=== PATIENT | female | born 1980 | race Caucasian/White ===

== ENCOUNTER → 2019-08-23 | Emergency (ER) | payer OTHER ==
[~2019-08-23] VITALS: Ht 154.9 cm; Wt 81.6 kg
[~2019-08-23] MED LIST: CLONAZEPAM1 GM; RESTORIL15 M1; ZESTRIL40 M1
== END | disposition left against medical advice (07) ==
LOC: ER 14:40
DX: K29.70 Gastritis, unspecified, without bleeding (principal)

== ENCOUNTER 2023-10-12 08:30 | Outpatient (CLI) | payer OTHER | END 2023-10-12 08:40 | disposition home or self-care (01) | LOC: PPH VACUNA 08:30 | PROVIDERS: ATTEND Emergency Medicine Pediatric Emergency Medicine | DX: Z23 Encounter for immunization (principal) ==